=== PATIENT | male | born 1975 | race Caucasian/White ===

== ENCOUNTER 2020-07-08 19:30 | Emergency (ER) | payer SELFPAY ==
[~2020-07-08] VITALS: Ht 162.6 cm; Wt 78.0 kg
[2020-07-08 19:32] VITALS: BP 141/76
[2020-07-08 22:07] VITALS: BP 128/62
== END 2020-07-08 22:07 | disposition home or self-care (01) ==
LOC: MED 19:30
DX: G89.29 Other chronic pain (principal); R07.9 Chest pain, unspecified; M79.10 Myalgia, unspecified site
CPT/HCPCS: 99283